=== PATIENT | female | born 1990 | race Asian ===

== ENCOUNTER 2020-06-17 18:12 | Emergency (ER) | payer SELFPAY ==
[~2020-06-17] VITALS: Ht 154.9 cm; Wt 62.3 kg
[2020-06-17 19:47] LABS: BASO # 0.1 x10^3/uL (0.0-0.2); BASO % 1 % (0-3); EOS # 0.1 x10^3/uL (0.0-0.7); EOS % 1 % (0-3); HEMATOCRIT 41.5 % (36.0-47.0); LYMPH % 23 % (24-48); MEAN CORPUSCULAR HEMOGLOBIN 29 pg (25-35); MEAN CORPUSCULAR HGB CONC 34 g/dL (31-37); MEAN CORPUSCULAR VOLUME 86 fL (79-100); MONO # 0.6 x10^3/uL (0.0-1.1); MONO % 7 % (0-9); NEUT # 5.8 x10^3/uL (1.8-7.7); NEUT % 68 % (31-73); PLATELET COUNT 244 x10^3/uL (140-400); RED BLOOD COUNT 4.85 x10^6/uL (3.50-5.40); RED CELL DISTRIBUTION WIDTH 12.3 % (11.5-14.5); WHITE BLOOD COUNT 8.5 x10^3/uL (4.0-11.0)
[2020-06-17 19:59] LABS: CALCIUM 9.3 mg/dL (8.5-10.1); CREATININE 0.6 mg/dL (0.6-1.0); GFR 119.9; POTASSIUM 3.4 mmol/L (3.5-5.1)
[2020-06-17 20:05] LABS: ALBUMIN 4.4 g/dL (3.4-5.0); ALBUMIN/GLOBULIN RATIO 1.1 (1.0-1.7); TOTAL BILIRUBIN 1.3 mg/dL (0.2-1.0); TOTAL PROTEIN 8.5 g/dL (6.4-8.2)
[2020-06-17] MEDS ORDERED: IOHEXOL 300 MG/ML 100ML VIAL. IV ONE (20:30)
[2020-06-17] MEDS ORDERED: CONTRAST GIVEN. MC PRN (20:45)
--- NOTE | 2020-06-17 20:58 | RAD ---
Exam: CT of abdomen and pelvis with contrast INDICATION: Right lower quadrant pain TECHNIQUE: Sequential axial images through the abdomen and pelvis obtained following the administrati on of 75 mL of Isovue-370 IV contrast. Sagittal and coronal reformatted images were reconstructed fro m the axial data and reviewed. Comparisons: None FINDINGS: Heart size is normal. No pericardial strandy opacities at dependent portion lungs likely representing atelectasis. No pleural effusion. Liver, spleen, pancreas, gallbladder and adrenals are unremarkable. No perinephric inflammation or hydronephrosis. No renal or ureteral calculi are identified. Bladder is partially distended and appears thin-walled. Uterus is not enlarged. There is endometrial thickening noted. No abnormal adnexal mass. Large and small bowel are unremarkable. Appendix is normal. Trace free fluid in the pelvis. No free i ntra-abdominal air. Abdominal aorta has a normal course and caliber. Abdominal vasculature is patent. No enlarged intra-abdominal lymph nodes are identified. No suspicious osseous lesions or acute fractures. IMPRESSION: 1. Apparent endometrial thickening. Correlate with symptomatology to determine the need for further evaluation with ultrasound. 2. Small amount of free fluid in pelvis which is nonspecific may be physiologic. 3. Normal appendix Exposure: One or more of the following in the visualized dose reduction techniques were utilized for this examination: 1. Automated exposure control 2. Adjustment of the MA and/or KV according to patient size 3. Use of iterative of reconstructive technique Electronically signed by: Nick Jo MD (06/17/2020 8:55 PM) [facility]
--- NOTE | 2020-06-17 21:03 | PHYS DOC ---
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 She went to [place] the urgent clinic today and they did a urinalysis and she was not and did not have infection. Patient states she came here today because she wants a second opinion. Patient rates her pain a 6 out of 10 in the right lower quadrant. Patient denies fever, nausea, vomiting, diarrhea, back pain, chest pain, shortness of air, urinary symptoms, headache, dizziness, abnormal vaginal discharge or bleeding. 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 [] Eyes: Denies change in visual acuity. [] HENT: Denies nasal congestion or sore throat. [] Respiratory: Denies cough or shortness of breath. [] Cardiovascular: Denies chest pain or edema. [] GI: + Right lower abdominal pain, denies nausea, vomiting, bloody stools or diarrhea. [] : Denies dysuria. [] Musculoskeletal: Denies back pain or joint pain. [] Integument: Denies rash. [] Neurologic: Denies headache, focal weakness or sensory changes. [] Endocrine: Denies polyuria or polydipsia. [] Lymphatic: Denies swollen glands. [] Psychiatric: Denies depression or anxiety. 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 [] HENT: Normocephalic, atraumatic, bilateral external ears normal, oropharynx moist, no oral exudates, nose normal. [] Eyes: PERRLA, EOMI, conjunctiva normal, no discharge. [] Neck: Normal range of motion, no tenderness, supple, no stridor. [] Cardiovascular:Heart rate regular rhythm, no murmur [] Lungs & Thorax: Bilateral breath sounds clear to auscultation [] Abdomen: Bowel sounds normal, soft, right lower quadrant tenderness, no masses, no pulsatile masses. [] Skin: Warm, dry, no erythema, no rash. [] Back: No tenderness, no CVA tenderness. [] Extremities: No tenderness, no cyanosis, no clubbing, ROM intact, no edema. [] Neurologic: Alert and oriented X 3, normal motor function, normal sensory function, no focal deficits noted. [] Psychologic: Affect normal, judgement normal, mood normal. 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) Current Patient Data: Labs: Laboratory Tests Test 06/17/20 19:30 White Blood Count 8.5 x10^3/uL (4.0-11.0) Red Blood Count 4.85 x10^6/uL (3.50-5.40) Hemoglobin 14.0 g/dL (12.0-15.5) Hematocrit 41.5 % (36.0-47.0) Mean Corpuscular Volume 86 fL (79-100) Mean Corpuscular Hemoglobin 29 pg (25-35) Mean Corpuscular Hemoglobin Concent 34 g/dL (31-37) Red Cell Distribution Width 12.3 % (11.5-14.5) Platelet Count 244 x10^3/uL (140-400) Neutrophils (%) (Auto) 68 % (31-73) Lymphocytes (%) (Auto) 23 % (24-48) L Monocytes (%) (Auto) 7 % (0-9) Eosinophils (%) (Auto) 1 % (0-3) Basophils (%) (Auto) 1 % (0-3) Neutrophils # (Auto) 5.8 x10^3/uL (1.8-7.7) Lymphocytes # (Auto) 2.0 x10^3/uL (1.0-4.8) Monocytes # (Auto) 0.6 x10^3/uL (0.0-1.1) Eosinophils # (Auto) 0.1 x10^3/uL (0.0-0.7) Basophils # (Auto) 0.1 x10^3/uL (0.0-0.2) Maternal Serum HCG Beta Subunit < 1 mIU/mL (0-5) Sodium Level 141 mmol/L (136-145) Potassium Level 3.4 mmol/L (3.5-5.1) L Chloride Level 103 mmol/L (98-107) Carbon Dioxide Level 23 mmol/L (21-32) Anion Gap 15 (6-14) H Blood Urea Nitrogen 8 mg/dL (7-20) Creatinine 0.6 mg/dL (0.6-1.0) Estimated GFR (Cockcroft-Gault) 119.9 BUN/Creatinine Ratio 13 (6-20) Glucose Level 86 mg/dL (70-99) Calcium Level 9.3 mg/dL (8.5-10.1) Total Bilirubin 1.3 mg/dL (0.2-1.0) H Aspartate Amino Transferase (AST) 26 U/L (15-37) Alanine Aminotransferase (ALT) 47 U/L (14-59) Alkaline Phosphatase 75 U/L (46-116) Total Protein 8.5 g/dL (6.4-8.2) H Albumin 4.4 g/dL (3.4-5.0) Albumin/Globulin Ratio 1.1 (1.0-1.7) Lipase 114 U/L (73-393) Laboratory Tests 06/17/20 19:30 Laboratory Tests 06/17/20 19:30 Vital Signs: Vital Signs Date Time Temp Pulse Resp B/P (MAP) Pulse Ox O2 Delivery O2 Flow Rate FiO2 06/17/20 19:15 98.7 59 20 134/77 (96) 100 Room Air 98.7 (GURDEEP PETERSON APRN) EKG: EKG: [] (GURDEEP PETERSON APRN) Radiology/Procedures: Radiology/Procedures: [] Impression: [facility] [address] [place] [address] IMAGING REPORT Signed PATIENT: OPHELIA BEAN ACCOUNT: [id number] : 1990 LOCATION: ER AGE: 29 SEX: F EXAM STATUS: REG ER ORD. PHYSICIAN: GURDEEP PETERSON APRN REASON: right lower quad pain PROCEDURE: CT ABD PELV W/ IV CONTRST ONLY Exam: CT of abdomen and pelvis with contrast INDICATION: Right lower quadrant pain TECHNIQUE: Sequential axial images through the abdomen and pelvis obtained following the administration of 75 mL of Isovue-370 IV contrast. Sagittal and coronal reformatted images were reconstructed from the axial data and reviewed. Comparisons: None FINDINGS: Heart size is normal. No pericardial strandy opacities at dependent portion lungs likely representing atelectasis. No pleural effusion. Liver, spleen, pancreas, gallbladder and adrenals are unremarkable. No perinephric inflammation or hydronephrosis. No renal or ureteral calculi are identified. Bladder is partially distended and appears thin-walled. Uterus is not enlarged. There is endometrial thickening noted. No abnormal adnexal mass. Large and small bowel are unremarkable. Appendix is normal. Trace free fluid in the pelvis. No free intra-abdominal air. Abdominal aorta has a normal course and caliber. Abdominal vasculature is patent. No enlarged intra-abdominal lymph nodes are identified. No suspicious osseous lesions or acute fractures. IMPRESSION: 1. Apparent endometrial thickening. Correlate with symptomatology to determine the need for further evaluation with ultrasound. 2. Small amount of free fluid in pelvis which is nonspecific may be physiologic. 3. Normal appendix Exposure: One or more of the following in the visualized dose reduction techniques were utilized for this examination: 1. Automated exposure control 2. Adjustment of the MA and/or KV according to patient size 3. Use of iterative of reconstructive technique Electronically signed by: Nick Lechuga MD (06/17/2020 8:55 PM) [facility] DICTATED and SIGNED BY: NICK LECHUGA MD DATE: 06/17/[id number] 0 [facility] [address] [place] [address] IMAGING REPORT Signed PATIENT: OPHELIA BEAN ACCOUNT: [id number] : 1990 LOCATION: ER AGE: 29 SEX: F EXAM STATUS: REG ER ORD. PHYSICIAN: GURDEEP PETERSON APRN REASON: pelvic pain abdnormal CT PROCEDURE: TRANSVAGINAL US TRANSVAGINAL Clinical Indication: Reason: pelvic pain abdnormal CT Comparison: CT abdomen and pelvis with contrast, earlier same day. TECHNIQUE: Real-time ultrasound imaging of the pelvis using transabdominal and transvaginal window is performed. Findings: Anteverted uterus measures 7.4 x 4.6 x 4.3 cm. No focal abnormality of the myometrium. The endometrial stripe is abnormally thickened measuring up to 1.9 cm. A 5 mm nabothian cyst is seen. There is moderate cul-de-sac free fluid. No evidence of adnexal mass. The ovaries are similar in size and demonstrate normal blood flow. A functional cyst of the left ovary measures up to 1.6 cm. IMPRESSION: 1. Endometrial stripe is abnormally thickened. Suggest ultrasound follow-up in 6 weeks. 2. There is moderate pelvic free fluid. 3. Normal blood flow in the ovaries. Electronically signed by: Kingsley Rodriguez MD (06/17/2020 10:47 PM) [facility] DICTATED and SIGNED BY: KINGSLEY RODRIGUEZ MD DATE: 06/17/[id number] 0 (GURDEEP PETERSON APRN) Course & Med Decision Making: Course & Med Decision Making Pertinent Labs and Imaging studies reviewed. (See chart for details) See HPI. Alert and oriented x4. Ambulatory with a steady gait. Speaks in full complete sentences. Afebrile. Abdomen is soft and tender to the right lower quadrant only. No rebound tenderness. Skin pink warm and dry. Blood work is unremarkable. CT shows:IMPRESSION: 1. Apparent endometrial thickening. Correlate with symptomatology to determine the need for further evaluation with ultrasound. 2. Small amount of free fluid in pelvis which is nonspecific may be physiologic. 3. Normal appendix Ultrasound has been ordered to rule out a torsion. Ultrasound showed some endometrial thickening. I have referred her to Dr. Bustamante. I have consulted with Dr Jacobs on this patient and he states she is ok to go home and follow up as out patient. (GURDEEP PETERSON APRN) Course & Med Decision Making Patient was managed independently by PATIENCE. I was available for consultation as needed. (ADAN JACOBS DO) Dragon Disclaimer: Dragon Disclaimer: This electronic medical record was generated, in whole or in part, using a voice recognition dictation system. (GURDEEP PETERSON APRN) Departure Departure Impression: Primary Impression: Endometrial thickening on ultrasound Additional Impression: Abdominal pain Qualified Codes: R10.31 - Right lower quadrant pain Disposition: 01 [place] HOME SELF CARE/HOMELESS Condition: STABLE Referrals: NO PCP (PCP) ALMITA BUSTAMANTE Jr, MD Patient Instructions: Pelvic Pain, Female Additional Instructions: Follow-up with tire rebuilder to see as possible within the next 6 months at least. I have referred you to one. Take Tylenol for any pain. Return for worsening pain or fever. GURDEEP PETERSON APRN Jun 17, 2020 21:03 ADAN JACOBS DO Jun 17, 2020 23:56
[2020-06-17 22:19] LABS: BILIRUBIN,URINE NEGATIVE (NEG); CLARITY,URINE CLEAR; COLOR,URINE YELLOW; NITRITE,URINE NEGATIVE (NEG); PH,URINE 5.5 (<5.0-8.0); PROTEIN,URINE NEGATIVE (NEG-TRACE); UROBILINOGEN,URINE 0.2 mg/dL (0.2 mg/dL)
[2020-06-17 22:23] LABS: BACTERIA,URINE 0 /HPF (0-FEW); RBC,URINE OCC /HPF (0-2); WBC,URINE 0 /HPF (0-4)
--- NOTE | 2020-06-17 22:50 | RAD ---
US TRANSVAGINAL Clinical Indication: Reason: pelvic pain abdnormal CT Comparison: CT abdomen and pelvis with contrast, earlier same day. TECHNIQUE: Real-time ultrasound imaging of the pelvis using transabdominal and transvaginal window is performed. Findings: Anteverted uterus measures 7.4 x 4.6 x 4.3 cm. No focal abnormality of the myometrium. The endometrial stripe is abnormally thickened measuring up to 1.9 cm. A 5 mm nabothian cyst is seen. There is moderate cul-de-sac free fluid. No evidence of adnexal mass. The ovaries are similar in size and demonstrate normal blood flow. A functional cyst of the left ovar y measures up to 1.6 cm. IMPRESSION: 1. Endometrial stripe is abnormally thickened. Suggest ultrasound follow-up in 6 weeks. 2. There is moderate pelvic free fluid. 3. Normal blood flow in the ovaries. Electronically signed by: Kingsley Rodriguez MD (06/17/2020 10:47 PM) [facility]
[2020-06-17 23:02] VITALS: BP 113/64
== END 2020-06-17 23:17 | disposition home or self-care (01) ==
LOC: ER 18:12
DX: R93.89 Abnormal findings on diagnostic imaging of other specified body structures (principal); R10.31 Right lower quadrant pain; N83.202 Unspecified ovarian cyst, left side
CPT/HCPCS: 36415; 74177; 76830; 80053; 81001; 83690; 84702; 85025; 99285; Q9967